=== PATIENT | female | born 1950 | race Hispanic/Latino ===

== ENCOUNTER → 2017-12-26 | Outpatient (CLI) | payer MEDICARE | END | disposition home or self-care (01) | LOC: RAH 08:23 | PROVIDERS: ATTEND Family Medicine | DX: Z12.31 Encounter for screening mammogram for malignant neoplasm of breast (principal) | CPT/HCPCS: 77067 ==

== ENCOUNTER → 2018-12-27 | Outpatient (CLI) | payer MEDICARE | END | disposition home or self-care (01) | LOC: RAH 07:39 | PROVIDERS: ATTEND Family Medicine | DX: Z12.31 Encounter for screening mammogram for malignant neoplasm of breast (principal) | CPT/HCPCS: 77067 ==

== ENCOUNTER → 2019-05-20 | Outpatient (CLI) | payer MEDICARE | END | disposition home or self-care (01) | LOC: RAH 13:36 | PROVIDERS: ATTEND Family Medicine | DX: S09.90XA Unspecified injury of head, initial encounter (principal); G31.89 Other specified degenerative diseases of nervous system; R90.82 White matter disease, unspecified; X58.XXXA Exposure to other specified factors, initial encounter; Y93.89 Activity, other specified; Y92.89 Other specified places as the place of occurrence of the external cause; Y99.8 Other external cause status | CPT/HCPCS: 70450 ==

== ENCOUNTER → 2019-12-29 | Outpatient (CLI) | payer MEDICARE | END | disposition home or self-care (01) | LOC: RAH 08:34 | PROVIDERS: ATTEND Family Medicine | DX: Z12.31 Encounter for screening mammogram for malignant neoplasm of breast (principal) | CPT/HCPCS: 77067 ==

== ENCOUNTER 2020-05-12 16:13 | Inpatient (IN) | payer OTHER, MEDICARE ==
[~2020-05-12] VITALS: Ht 160 cm; Wt 68.9 kg
[2020-05-12 17:13] LABS: BASOPHILS % (AUTO) 0.9 % (0.0-5.0); HEMATOCRIT 48.1 % (36-48); LYMPHOCYTES % (AUTO) 7.2 % (21.0-51.0); MEAN CORPUSCULAR HEMOGLOBIN 28.7 pg (27.0-33.0); MEAN CORPUSCULAR HGB CONC 32.4 g/dL (32.0-36.0); MEAN CORPUSCULAR VOLUME 88.6 fL (79-99); NEUTROPHILS % (AUTO) 79.7 % (40.0-77.0); NUCLEATED RED BLOOD CELLS 0.1 % (0.0-0.19); PLATELET COUNT (AUTO) 432 K/uL (130-400); RED BLOOD CELL COUNT(AUTO) 5.43 MIL/uL (4.00-5.50); RED CELL DISTRIBUTION WIDTH 13.5 % (11.0-15.5); WHITE BLOOD COUNT (AUTO) 20.5 K/uL (4.8-10.8)
[2020-05-12 17:20] LABS: CHLORIDE 100 mmol/L (101-111); CREATININE 1.3 mg/dL (0.5-1.5); GLOMERULAR FILTR. RATE CALC 43 mL/min (>60); GLUCOSE,RANDOM 380 mg/dL (70-105); POTASSIUM 4.3 mmol/L (3.5-5.1); SODIUM SERUM 139 mmol/L (136-145); UREA NITROGEN, BLOOD 16 mg/dL (7-18)
[2020-05-12 17:22] LABS: INR 1.08 (0.85-1.15); PARTIAL THROMBOPLASTIN TIME 29.8 SEC (26.3-35.5); PROTHROMBIN TIME 11.6 SEC (9.6-11.6)
[2020-05-12 17:29] LABS: ABG BASE EXCESS -22.6 mmol/L (-2.0-3.0); ABG HCO3 4.9 mmol/L (21.0-28.0); ABG PCO2 16 mmHg (32-45)
[2020-05-12 17:30] LABS: ALANINE AMINOTRANSFERASE 55 U/L (12-78); ALBUMIN 2.8 g/dL (3.5-5.0); ASPARTATE AMINOTRANSFERASE 45 U/L (10-37); BILIRUBIN,TOTAL 0.7 mg/dL (0.2-1.0); CREATINE KINASE, TOTAL 65 U/L (21-232); MYOGLOBIN 84 ng/mL (10-92); TOTAL PROTEIN, SERUM 8.8 g/dL (6.0-8.3); TROPONIN I < 0.04 ng/mL (0.00-0.06)
[2020-05-12 17:54] LABS: CARBON DIOXIDE 9 mmol/L (21-32)
[2020-05-12] MEDS ORDERED: METHYLPREDNISOLONE SOD SUCC 40MG/ML 1ML ONE (17:57)
[2020-05-12] MEDS ORDERED: CEFTRIAXONE SODIUM 1 GM ONE (17:58)
[2020-05-12] MEDS ORDERED: AZITHROMYCIN 500MG+NS 250ML 250 ML IV ONE (17:58)
[2020-05-12] MEDS ORDERED: INSULIN HUMULIN R 100 UNIT/ML 3ML ONE (18:00)
[2020-05-12] MEDS ORDERED: DEXTROSE 5 %-0.45 % NACL 1,000 ML IV PRN (18:25)
[2020-05-12] MEDS ORDERED: SODIUM CHLORIDE 0.9% 1000ML 1,000 ML IV SCH (18:25)
[2020-05-12] MEDS ORDERED: INSULIN HUMULIN R 100 UNIT/ML 3ML IV SCH (18:30)
[2020-05-12] MEDS ORDERED: POTASSIUM CHLORIDE 10MEQ/100ML 100 ML IV PRN (18:30)
[2020-05-12] MEDS ORDERED: DIPHENHYDRAMINE HCL 25 MG CAPSULE PO PRN (18:45)
[2020-05-12] MEDS ORDERED: NITROGLYCERIN 0.4 MG SL TAB SL PRN (18:45)
[2020-05-12] MEDS ORDERED: ONDANSETRON HCL 4 MG/2 ML VIAL IV PRN (18:45)
[2020-05-12] MEDS ORDERED: SODIUM CHLORIDE 0.9% 100 ML IV ONE (18:47)
[2020-05-12 18:53] LABS: HEMOGLOBIN A1C 9.4 % (4.0-6.0)
[2020-05-12] MEDS ORDERED: ALBUTEROL INHALER 90MCG/INH IH PRN (19:00)
[2020-05-12] MEDS ORDERED: SODIUM BICARB 50MEQ 50ML VIAL IV ONE ×2 (19:00→22:30)
[2020-05-12] MEDS: ALBUTEROL INHALER 90MCG/INH IH SCH ×2 (19:00→23:00)
[2020-05-12 19:25] LABS: APPEARANCE,URINE Clear (CLEAR); BILIRUBIN,URINE Negative (NEGATIVE); COLOR,URINE Yellow (YELLOW); GLUCOSE, URINE (UA) >=1000 mg/dL (NEGATIVE); KETONES,URINE >=160 mg/dL (NEGATIVE); LEUKOCYTE ESTERASE ,URINE Negative (NEGATIVE); NITRATE,URINE Negative (NEGATIVE); OCCULT BLOOD,URINE Small (NEGATIVE); PROTEIN,URINE POS 2+ mg/dL (NEGATIVE)
[2020-05-12] MEDS ORDERED: ERGOCALCIFEROL (VITAMIN D2) 50,000 UNIT CAPSULE PO ONE (19:30)
[2020-05-12 19:41] LABS: BACTERIA,URINE Few /HPF (None Seen); SQUAMOUS EPITHELIAL CELL,UR Few /HPF (0-2)
[2020-05-12 19:42] LABS: MUCUS,URINE Few LPF (None Seen)
[2020-05-12 20:56] LABS: MAGNESIUM 2.3 mg/dL (1.80-2.40); POTASSIUM 3.7 mmol/L (3.5-5.1)
[2020-05-12] MEDS: METHYLPREDNISOLONE SOD SUCC 40MG/ML 1ML IVP SCH (21:00)
[2020-05-12] MEDS: FAMOTIDINE/PF 20 MG/2 ML VIAL IV SCH (21:00)
[2020-05-12] MEDS: ENOXAPARIN SODIUM 80 MG/0.8 ML SQ SCH (21:00)
[2020-05-12 21:37] LABS: ABG BASE EXCESS -21.1 mmol/L (-2.0-3.0); ABG HCO3 6.1 mmol/L (21.0-28.0); ABG OXYGEN SATURATION 90.7 % (95.0-99.0); ABG PCO2 19 mmHg (32-45)
[2020-05-12] MEDS ORDERED: ERGOCALCIFEROL (VITAMIN D2) 50,000 UNIT CAPSULE ONE (22:30)
[2020-05-12] MEDS ORDERED: FAMOTIDINE/PF 20 MG/2 ML VIAL IV ONE (22:30)
[2020-05-12] MEDS ORDERED: SODIUM BICARB 8.4% 50ML SYRING 150 MEQ in DEXTROSE 5%-WATER 1,000 ML IV SCH ×2 (22:30→23:00)
[2020-05-12] MEDS ORDERED: ENOXAPARIN SODIUM 80 MG/0.8 ML SQ ONE (22:31)
[2020-05-12] MEDS ORDERED: SODIUM BICARB 50MEQ 50ML VIAL ONE (22:46)
[2020-05-12] MEDS ORDERED: DEXTROSE 5%-WATER 1,000 ML IV ONE (22:48)
[2020-05-13 00:37] LABS: ABG BASE EXCESS -11.1 mmol/L (-2.0-3.0); ABG HCO3 12.8 mmol/L (21.0-28.0); ABG OXYGEN SATURATION 98.4 % (95.0-99.0); ABG PCO2 25 mmHg (32-45)
[2020-05-13 02:28] LABS: CREATININE 0.7 mg/dL (0.5-1.5); MAGNESIUM 2.2 mg/dL (1.80-2.40)
[2020-05-13 02:37] LABS: POTASSIUM 2.7 mmol/L (3.5-5.1)
[2020-05-13] MEDS ORDERED: METHYLPREDNISOLONE SOD SUCC 40MG/ML 1ML ONE ×3 (02:37→15:18)
[2020-05-13] MEDS ORDERED: POTASSIUM CHLORIDE 20MEQ/100ML 200 ML IV ONE (02:45)
[2020-05-13] MEDS ORDERED: LIDOCAINE HCL-MPF 1% 2ML VIAL ONE ×4 (02:50→17:26)
[2020-05-13] MEDS: ALBUTEROL INHALER 90MCG/INH IH SCH ×6 (03:00→23:00)
[2020-05-13 04:06] LABS: ABG BASE EXCESS -7.7 mmol/L (-2.0-3.0); ABG HCO3 15.6 mmol/L (21.0-28.0); ABG OXYGEN SATURATION 94.1 % (95.0-99.0); ABG PCO2 27 mmHg (32-45)
[2020-05-13 05:50] LABS: HEMATOCRIT 35.5 % (36-48); MEAN CORPUSCULAR HEMOGLOBIN 28.9 pg (27.0-33.0); MEAN CORPUSCULAR HGB CONC 34.6 g/dL (32.0-36.0); MEAN CORPUSCULAR VOLUME 83.5 fL (79-99); PLATELET COUNT (AUTO) 289 K/uL (130-400); RED BLOOD CELL COUNT(AUTO) 4.25 MIL/uL (4.00-5.50); WHITE BLOOD COUNT (AUTO) 10.4 K/uL (4.8-10.8)
[2020-05-13 06:09] LABS: BAND NEUTROPHILS % (MANUAL) 3 % (0-2); LYMPHOCYTES % (MANUAL) 6 % (22-44); MAN.DIFF COMMENT-IMPRESSION MANUAL DIFFERENTIAL; MONOCYTES % (MANUAL) 6 % (2-9); SEGMENTED NEUTROPHILS % 85 % (40-70)
[2020-05-13 06:10] LABS: PLATELET MORPHOLOGY COMMENT ADEQUATE
[2020-05-13 06:33] LABS: ALBUMIN 2.1 g/dL (3.5-5.0); BILIRUBIN,TOTAL 0.5 mg/dL (0.2-1.0); CREATININE 0.8 mg/dL (0.5-1.5); MAGNESIUM 2.2 mg/dL (1.80-2.40); TOTAL PROTEIN, SERUM 6.4 g/dL (6.0-8.3)
[2020-05-13 07:31] LABS: CRP QUANTITATIVE 210.1 mg/L (0.00-9.0)
[2020-05-13] MEDS ORDERED: DEXTROSE 5 %-0.45 % NACL 1,000 ML IV ONE (08:47)
[2020-05-13 08:51] LABS: CREATININE 0.7 mg/dL (0.5-1.5); MAGNESIUM 2.3 mg/dL (1.80-2.40); POTASSIUM 3.3 mmol/L (3.5-5.1)
[2020-05-13] MEDS: CEFTRIAXONE SODIUM 1 GM IV SCH (09:00)
[2020-05-13] MEDS: AZITHROMYCIN 500MG+NS 250ML 250 ML IV SCH (09:00)
[2020-05-13] MEDS: ENOXAPARIN SODIUM 80 MG/0.8 ML SQ SCH ×2 (09:00→21:00)
[2020-05-13] MEDS: ZINC SULFATE 220 CAPSULE PO SCH (09:00)
[2020-05-13] MEDS: METHYLPREDNISOLONE SOD SUCC 40MG/ML 1ML IVP SCH ×3 (09:00→21:00)
[2020-05-13] MEDS: ASCORBIC ACID 500 MG TAB PO SCH (09:00)
[2020-05-13] MEDS ORDERED: ENOXAPARIN SODIUM 40 MG/0.4 ML SYRINGE SQ SCH (09:00)
[2020-05-13] MEDS: FAMOTIDINE/PF 20 MG/2 ML VIAL IV SCH ×2 (09:00→21:00)
[2020-05-13] MEDS ORDERED: ASCORBIC ACID 500 MG TAB ONE (09:11)
[2020-05-13] MEDS ORDERED: POTASSIUM CHLORIDE 10MEQ/100ML 100 ML IV ONE ×3 (09:11→17:26)
[2020-05-13] MEDS ORDERED: ENOXAPARIN SODIUM 40 MG/0.4 ML SYRINGE SQ ONE (09:12)
[2020-05-13] MEDS ORDERED: ZINC SULFATE 220 CAPSULE ONE (09:12)
[2020-05-13 09:20] LABS: ABG BASE EXCESS -3.3 mmol/L (-2.0-3.0); ABG HCO3 19.8 mmol/L (21.0-28.0); ABG OXYGEN SATURATION 96.1 % (95.0-99.0); ABG PCO2 30 mmHg (32-45)
[2020-05-13] MEDS ORDERED: ALBUTEROL INHALER 90MCG/INH IH ONE (09:42)
[2020-05-13] MEDS ORDERED: FAMOTIDINE/PF 20 MG/2 ML VIAL IV ONE ×3 (09:47→22:55)
[2020-05-13] MEDS ORDERED: DEXTROSE 5%-WATER 1,000 ML IV SCH (10:30)
[2020-05-13] MEDS ORDERED: IOHEXOL-350 75 ML VIAL IV ONE (11:29)
[2020-05-13 14:58] LABS: CREATININE 0.8 mg/dL (0.5-1.5); POTASSIUM 3.1 mmol/L (3.5-5.1)
[2020-05-13] MEDS ORDERED: DEXTROSE 5%-WATER 1,000 ML IV ONE (15:19)
[2020-05-13] MEDS ORDERED: INSULIN GLARGINE 100 UNITS/ML 10 ML VIAL SQ SCH (16:00)
[2020-05-13] MEDS ORDERED: INSULIN HUMULIN R 100 UNIT/ML 3ML SQ SCH (16:30)
[2020-05-13 16:54] LABS: ABG BASE EXCESS -4.6 mmol/L (-2.0-3.0); ABG HCO3 18.1 mmol/L (21.0-28.0); ABG OXYGEN SATURATION 97.4 % (95.0-99.0); ABG PCO2 28 mmHg (32-45)
[2020-05-13] MEDS ORDERED: CEFTRIAXONE SODIUM 1 GM ONE (18:22)
[2020-05-13] MEDS ORDERED: AZITHROMYCIN 500MG+NS 250ML 250 ML IV ONE (18:22)
[2020-05-13] MEDS ORDERED: POTASSIUM CHLORIDE 10MEQ/100ML 200 ML IV ONE (22:54)
[2020-05-13] MEDS ORDERED: ENOXAPARIN SODIUM 100 MG/1 ML SQ ONE (22:55)
[2020-05-14] MEDS ORDERED: METHYLPREDNISOLONE SOD SUCC 40MG/ML 1ML ONE ×3 (00:44→22:41)
[2020-05-14] MEDS: ALBUTEROL INHALER 90MCG/INH IH SCH ×2 (03:00→07:00)
[2020-05-14] MEDS ORDERED: INSULIN HUMULIN R 100 UNIT/ML 3ML SQ SCH (04:00)
[2020-05-14] MEDS ORDERED: INSULIN HUMULIN R 100 UNIT/ML 3ML ONE ×2 (04:36→14:40)
[2020-05-14 06:53] LABS: ALBUMIN 2.2 g/dL (3.5-5.0); BILIRUBIN,TOTAL 0.6 mg/dL (0.2-1.0); CREATININE 0.9 mg/dL (0.5-1.5); CRP QUANTITATIVE 99.9 mg/L (0.00-9.0); TOTAL PROTEIN, SERUM 6.4 g/dL (6.0-8.3)
[2020-05-14 07:02] LABS: POTASSIUM 2.9 mmol/L (3.5-5.1)
[2020-05-14] MEDS ORDERED: POTASSIUM CHLORIDE 20 MEQ ERTAB PO SCH (07:45)
[2020-05-14] MEDS ORDERED: INSULIN REGULAR, HUMAN 3ML 100 UNIT in SODIUM CHLORIDE 0.9% 99 ML IV PRN ×2 (08:30)
[2020-05-14] MEDS: AZITHROMYCIN 500MG+NS 250ML 250 ML IV SCH (09:00)
[2020-05-14] MEDS: FAMOTIDINE/PF 20 MG/2 ML VIAL IV SCH ×2 (09:00→21:00)
[2020-05-14] MEDS: METHYLPREDNISOLONE SOD SUCC 40MG/ML 1ML IVP SCH ×3 (09:00→21:00)
[2020-05-14] MEDS: ENOXAPARIN SODIUM 80 MG/0.8 ML SQ SCH ×2 (09:00→21:00)
[2020-05-14] MEDS: CEFTRIAXONE SODIUM 1 GM IV SCH (09:00)
[2020-05-14] MEDS: ZINC SULFATE 220 CAPSULE PO SCH (09:00)
[2020-05-14] MEDS: ASCORBIC ACID 500 MG TAB PO SCH (09:00)
[2020-05-14] MEDS: DEXTROSE 5 %-0.45 % NACL 1,000 ML IV SCH (11:00)
[2020-05-14] MEDS ORDERED: LIDOCAINE HCL-MPF 1% 2ML VIAL IV PRN (11:00)
[2020-05-14] MEDS ORDERED: ASCORBIC ACID 500 MG TAB ONE (11:34)
[2020-05-14] MEDS ORDERED: ZINC SULFATE 220 CAPSULE ONE (11:34)
[2020-05-14] MEDS ORDERED: ENOXAPARIN SODIUM 80 MG/0.8 ML SQ ONE ×2 (11:34→22:41)
[2020-05-14] MEDS ORDERED: FAMOTIDINE/PF 20 MG/2 ML VIAL IV ONE ×2 (11:35→22:42)
[2020-05-14] MEDS ORDERED: AZITHROMYCIN 500MG+NS 250ML 250 ML IV ONE (11:35)
[2020-05-14] MEDS ORDERED: CEFTRIAXONE SODIUM 1 GM ONE (11:35)
[2020-05-14 12:08] LABS: HEMATOCRIT 36.5 % (36-48); MEAN CORPUSCULAR HGB CONC 33.4 g/dL (32.0-36.0); MEAN CORPUSCULAR VOLUME 86.9 fL (79-99); PLATELET COUNT (AUTO) 339 K/uL (130-400); RED CELL DISTRIBUTION WIDTH 13.7 % (11.0-15.5); WHITE BLOOD COUNT (AUTO) 11.5 K/uL (4.8-10.8)
[2020-05-14 13:12] LABS: LYMPHOCYTES % (MANUAL) 5 % (22-44); MAN.DIFF COMMENT-IMPRESSION MANUAL DIFFERENTIAL; MONOCYTES % (MANUAL) 3 % (2-9); PLATELET MORPHOLOGY COMMENT ADEQUATE; SEGMENTED NEUTROPHILS % 92 % (40-70)
[2020-05-14] MEDS ORDERED: SODIUM CHLORIDE 0.9% 100 ML IV ONE (14:41)
[2020-05-14] MEDS ORDERED: DEXTROSE 5 %-0.45 % NACL 1,000 ML IV ONE (15:12)
[2020-05-14 15:25] LABS: CREATININE 0.7 mg/dL (0.5-1.5)
[2020-05-14 15:34] LABS: POTASSIUM 2.9 mmol/L (3.5-5.1)
[2020-05-14] MEDS ORDERED: POTASSIUM CHLORIDE 20 MEQ ERTAB PO ONE (15:43)
[2020-05-14 19:21] LABS: CREATININE 0.7 mg/dL (0.5-1.5)
[2020-05-14 19:24] LABS: POTASSIUM 2.9 mmol/L (3.5-5.1)
[2020-05-14] MEDS ORDERED: POTASSIUM CHLORIDE 20MEQ/100ML 100 ML IV ONE (19:33)
[2020-05-14] MEDS ORDERED: LIDOCAINE HCL-MPF 1% 2ML VIAL ONE (19:34)
[2020-05-15] MEDS: DEXTROSE 5 %-0.45 % NACL 1,000 ML IV SCH ×2 (00:20→13:40)
[2020-05-15 00:57] LABS: CREATININE 0.6 mg/dL (0.5-1.5); POTASSIUM 3.2 mmol/L (3.5-5.1)
[2020-05-15] MEDS ORDERED: POTASSIUM CHLORIDE 20 MEQ ERTAB PO ONE ×4 (02:37→23:17)
[2020-05-15] MEDS ORDERED: DEXTROSE 5 %-0.45 % NACL 1,000 ML IV ONE (06:02)
[2020-05-15 07:12] LABS: ALBUMIN 2.2 g/dL (3.5-5.0); BILIRUBIN,TOTAL 0.5 mg/dL (0.2-1.0); CREATININE 0.5 mg/dL (0.5-1.5); POTASSIUM 3.4 mmol/L (3.5-5.1); TOTAL PROTEIN, SERUM 6.1 g/dL (6.0-8.3)
[2020-05-15] MEDS ORDERED: METHYLPREDNISOLONE SOD SUCC 40MG/ML 1ML ONE ×2 (08:15→20:50)
[2020-05-15] MEDS ORDERED: ENOXAPARIN SODIUM 80 MG/0.8 ML SQ ONE ×2 (08:15→20:50)
[2020-05-15] MEDS ORDERED: ASCORBIC ACID 500 MG TAB ONE (08:15)
[2020-05-15] MEDS ORDERED: ZINC SULFATE 220 CAPSULE ONE (08:16)
[2020-05-15] MEDS ORDERED: CEFTRIAXONE SODIUM 1 GM ONE (08:16)
[2020-05-15] MEDS ORDERED: FAMOTIDINE/PF 20 MG/2 ML VIAL IV ONE ×2 (08:16→20:51)
[2020-05-15] MEDS: FAMOTIDINE/PF 20 MG/2 ML VIAL IV SCH ×2 (09:00→21:00)
[2020-05-15] MEDS: ENOXAPARIN SODIUM 80 MG/0.8 ML SQ SCH ×2 (09:00→21:00)
[2020-05-15] MEDS: METHYLPREDNISOLONE SOD SUCC 40MG/ML 1ML IVP SCH ×3 (09:00→21:00)
[2020-05-15] MEDS: ASCORBIC ACID 500 MG TAB PO SCH (09:00)
[2020-05-15] MEDS: ZINC SULFATE 220 CAPSULE PO SCH (09:00)
[2020-05-15] MEDS: CEFTRIAXONE SODIUM 1 GM IV SCH (09:00)
[2020-05-15] MEDS: AZITHROMYCIN 500MG+NS 250ML 250 ML IV SCH (09:00)
[2020-05-15 11:48] LABS: ABG BASE EXCESS -4.6 mmol/L (-2.0-3.0); ABG HCO3 17.9 mmol/L (21.0-28.0); ABG OXYGEN SATURATION 91.5 % (95.0-99.0); ABG PCO2 27 mmHg (32-45)
[2020-05-15 14:06] LABS: CREATININE 0.7 mg/dL (0.5-1.5); POTASSIUM 3.7 mmol/L (3.5-5.1)
--- NOTE | 2020-05-15 17:13 | NUR ---
INITIAL SW spoke to patient's son, [phone]. Patient lives with spouse at home. She has no home services. DME: glucometer (no insulin), BPM, shower chair. Patient is independent and drives. PCP is Dr. Tanja Dodd. Pharmacy is [facility] located on [address] in [place]. DCP is home. Addendum: 05/15/20 at 1716 by TANJA MATA SS Amended: Links added.
[2020-05-15] MEDS ORDERED: INSULIN HUMULIN R 100 UNIT/ML 3ML ONE (18:37)
[2020-05-15] MEDS: INSULIN GLARGINE 100 UNITS/ML 10 ML VIAL SQ SCH (21:00)
[2020-05-15 22:30] LABS: CREATININE 0.5 mg/dL (0.5-1.5)
[2020-05-16] VITALS (10 sets, daily range): BP systolic 146–165; BP diastolic 57–133
[2020-05-16] MEDS: DEXTROSE 5 %-0.45 % NACL 1,000 ML IV SCH ×2 (03:00→15:34)
--- NOTE | 2020-05-16 06:35 | NUR ---
ADMIT 0535 RECIEVED ED REPORT FROM ROSIO MCCLURE RN 0635 PT ADMIT RM 217 CONNECTED TO BEDSIDE MONITOR 02 5L NC PT ALERT ORIENTED STATED 'FEELING MUCH BETTER' IN NO DISTRESS AT THIS TIME. WILL CONTINUE TO MONITOR
[2020-05-16 06:59] LABS: BASOPHILS % (AUTO) 0.2 % (0.0-5.0); HEMATOCRIT 36.4 % (36-48); LYMPHOCYTES % (AUTO) 9.4 % (21.0-51.0); MEAN CORPUSCULAR HEMOGLOBIN 28.5 pg (27.0-33.0); MEAN CORPUSCULAR HGB CONC 33.8 g/dL (32.0-36.0); MEAN CORPUSCULAR VOLUME 84.3 fL (79-99); MONOCYTES % (AUTO) 3.9 % (3.0-13.0); NEUTROPHILS % (AUTO) 82.6 % (40.0-77.0); PLATELET COUNT (AUTO) 343 K/uL (130-400); RED BLOOD CELL COUNT(AUTO) 4.32 MIL/uL (4.00-5.50); WHITE BLOOD COUNT (AUTO) 8.1 K/uL (4.8-10.8)
[2020-05-16 07:37] LABS: ALBUMIN 2.3 g/dL (3.5-5.0); BILIRUBIN,TOTAL 0.5 mg/dL (0.2-1.0); CREATININE 0.6 mg/dL (0.5-1.5); POTASSIUM 3.8 mmol/L (3.5-5.1); TOTAL PROTEIN, SERUM 6.1 g/dL (6.0-8.3)
[2020-05-16] MEDS: INSULIN GLARGINE 100 UNITS/ML 10 ML VIAL SQ SCH ×2 (07:43→20:48)
[2020-05-16] MEDS: ZINC SULFATE 220 CAPSULE PO SCH (08:58)
[2020-05-16] MEDS: METHYLPREDNISOLONE SOD SUCC 40MG/ML 1ML IVP SCH ×3 (08:58→20:50)
[2020-05-16] MEDS: FAMOTIDINE/PF 20 MG/2 ML VIAL IV SCH ×2 (08:58→20:21)
[2020-05-16] MEDS: CEFTRIAXONE SODIUM 1 GM IV SCH (08:58)
[2020-05-16] MEDS: ASCORBIC ACID 500 MG TAB PO SCH (08:58)
[2020-05-16] MEDS: ENOXAPARIN SODIUM 80 MG/0.8 ML SQ SCH ×2 (08:59→20:20)
[2020-05-16] MEDS: AZITHROMYCIN 500MG+NS 250ML 250 ML IV SCH (08:59)
[2020-05-16] MEDS: INSULIN HUMULIN R 100 UNIT/ML 3ML SQ SCH ×4 (09:12→20:47)
[2020-05-16] MEDS: ALBUTEROL INHALER 90MCG/INH IH SCH ×3 (15:11→20:49)
[2020-05-17] VITALS (7 sets, daily range): BP systolic 122–163; BP diastolic 59–73
[2020-05-17 04:08] LABS: MEAN CORPUSCULAR HEMOGLOBIN 28.5 pg (27.0-33.0); MEAN CORPUSCULAR HGB CONC 34.4 g/dL (32.0-36.0); MEAN CORPUSCULAR VOLUME 82.9 fL (79-99); PLATELET COUNT (AUTO) 300 K/uL (130-400); RED CELL DISTRIBUTION WIDTH 12.7 % (11.0-15.5); WHITE BLOOD COUNT (AUTO) 7.7 K/uL (4.8-10.8)
[2020-05-17 04:31] LABS: ALBUMIN 2.1 g/dL (3.5-5.0); BILIRUBIN,TOTAL 0.4 mg/dL (0.2-1.0); CREATININE 0.5 mg/dL (0.5-1.5); CRP QUANTITATIVE 56.5 mg/L (0.00-9.0); POTASSIUM 3.3 mmol/L (3.5-5.1); TOTAL PROTEIN, SERUM 5.8 g/dL (6.0-8.3)
[2020-05-17] MEDS: ALBUTEROL INHALER 90MCG/INH IH SCH ×5 (07:00→23:00)
[2020-05-17] MEDS: INSULIN HUMULIN R 100 UNIT/ML 3ML SQ SCH ×4 (07:30→20:19)
[2020-05-17] MEDS: FAMOTIDINE/PF 20 MG/2 ML VIAL IV SCH ×2 (07:39→20:18)
[2020-05-17] MEDS: CEFTRIAXONE SODIUM 1 GM IV SCH (07:39)
[2020-05-17] MEDS: AZITHROMYCIN 500MG+NS 250ML 250 ML IV SCH (07:39)
[2020-05-17] MEDS: ZINC SULFATE 220 CAPSULE PO SCH (07:39)
[2020-05-17] MEDS: METHYLPREDNISOLONE SOD SUCC 40MG/ML 1ML IVP SCH ×3 (07:39→20:18)
[2020-05-17] MEDS: ASCORBIC ACID 500 MG TAB PO SCH (07:39)
[2020-05-17] MEDS: ENOXAPARIN SODIUM 80 MG/0.8 ML SQ SCH ×2 (07:40→20:21)
[2020-05-17] MEDS: POTASSIUM CHLORIDE 20 MEQ ERTAB PO PRN (07:40)
[2020-05-17] MEDS: INSULIN GLARGINE 100 UNITS/ML 10 ML VIAL SQ SCH ×2 (07:41→20:20)
[2020-05-17] MEDS: POTASSIUM CHLORIDE 10% ELIXIR 20 MEQ/15 ML UDCUP PO PRN (07:42)
[2020-05-17] MEDS: DEXTROSE 5 %-0.45 % NACL 1,000 ML IV SCH ×2 (07:43→19:00)
[2020-05-17 07:58] LABS: BAND NEUTROPHILS % (MANUAL) 1 % (0-2); LYMPHOCYTES % (MANUAL) 3 % (22-44); MAN.DIFF COMMENT-IMPRESSION MANUAL DIFFERENTIAL; MONOCYTES % (MANUAL) 3 % (2-9); PLATELET MORPHOLOGY COMMENT ADEQUATE; REACTIVE LYMPHOCYTES 2 % (0-0); SEGMENTED NEUTROPHILS % 91 % (40-70)
--- NOTE | 2020-05-17 08:00 | NUR ---
ASSESSMENT ENCOUNTERED PT IN SEMI CARLOS'S POSITION, A&OX3, CALM COOPERATIVE BUT DOES APPEAR TO BE SHORT OF BREATH. O2SATS 85% ON 5LNC, REPOSITIONED TO HIGH CARLOS'S POSITION, O2SATS ONLY IMPROVED TO 86%, PT IS ABLE TO TOLERATE CLEAR LIQUIDS WITH NO THROAT CLEARING OR COUGH. O2 INCREASED TO 6LNC WITH ADDITION OF 100% NRB MASK, O2SATS IMPROVED TO 95%. INFORMED PT THAT SHE WILL REMAIN IN HIGH CARLOS'S POSITION AND NRB/NC WITH AN ATTEMPT TO WEAN OFF BACK TO NC. CALL LIGHT WITHIN REACH.
[2020-05-17] MEDS ORDERED: ASPI-556 PO (17:43)
[2020-05-17] MEDS ORDERED: METO-409 PO (17:43)
[2020-05-17] MEDS ORDERED: OMEP20CA12 PO (17:43)
[2020-05-17] MEDS ORDERED: ATOR20TA65 PO (17:43)
[2020-05-17] MEDS ORDERED: LOSA25TA41 PO (17:43)
[2020-05-17] MEDS ORDERED: RANO500T6 PO (17:43)
[2020-05-17] MEDS ORDERED: METF-444 PO (17:43)
[2020-05-17] MEDS ORDERED: ISOS30TA6 PO (17:43)
[2020-05-17] MEDS ORDERED: LEVO25TA54 PO (17:43)
[2020-05-17] MEDS ORDERED: GLIP10TA9 PO (17:43)
[2020-05-17] MEDS ORDERED: EMPA25TA PO (17:43)
[2020-05-17] MEDS ORDERED: TRAZ-258 PO (17:43)
[2020-05-18 04:01] LABS: HEMATOCRIT 34.6 % (36-48); MEAN CORPUSCULAR HGB CONC 33.8 g/dL (32.0-36.0); MEAN CORPUSCULAR VOLUME 85.6 fL (79-99); PLATELET COUNT (AUTO) 335 K/uL (130-400); RED BLOOD CELL COUNT(AUTO) 4.04 MIL/uL (4.00-5.50); RED CELL DISTRIBUTION WIDTH 12.7 % (11.0-15.5); WHITE BLOOD COUNT (AUTO) 11.4 K/uL (4.8-10.8)
[2020-05-18 04:04] VITALS: BP 145/68
[2020-05-18 04:12] LABS: BILIRUBIN,TOTAL 0.3 mg/dL (0.2-1.0); CREATININE 0.6 mg/dL (0.5-1.5); CRP QUANTITATIVE 31.4 mg/L (0.00-9.0); POTASSIUM 3.5 mmol/L (3.5-5.1); TOTAL PROTEIN, SERUM 5.6 g/dL (6.0-8.3)
[2020-05-18 05:38] LABS: BAND NEUTROPHILS % (MANUAL) 6 % (0-2); LYMPHOCYTES % (MANUAL) 7 % (22-44); MAN.DIFF COMMENT-IMPRESSION MANUAL DIFFERENTIAL; METAMYELOCYTES % 2 % (0-0); MONOCYTES % (MANUAL) 4 % (2-9); MYELOCYTES % 1 % (0-0); SEGMENTED NEUTROPHILS % 80 % (40-70)
[2020-05-18 05:39] LABS: PLATELET MORPHOLOGY COMMENT ADEQUATE
[2020-05-18] MEDS: INSULIN HUMULIN R 100 UNIT/ML 3ML SQ SCH ×4 (05:39→22:47)
[2020-05-18] MEDS: ALBUTEROL INHALER 90MCG/INH IH SCH ×5 (05:40→22:08)
[2020-05-18 07:45] VITALS: BP 135/65
[2020-05-18] MEDS: DEXTROSE 5 %-0.45 % NACL 1,000 ML IV SCH ×2 (08:20→22:01)
[2020-05-18] MEDS: FAMOTIDINE/PF 20 MG/2 ML VIAL IV SCH ×2 (08:27→22:01)
[2020-05-18] MEDS: CEFTRIAXONE SODIUM 1 GM IV SCH (08:28)
[2020-05-18] MEDS: METHYLPREDNISOLONE SOD SUCC 40MG/ML 1ML IVP SCH ×3 (08:28→22:01)
[2020-05-18] MEDS: AZITHROMYCIN 500MG+NS 250ML 250 ML IV SCH (08:28)
[2020-05-18] MEDS: ENOXAPARIN SODIUM 80 MG/0.8 ML SQ SCH ×2 (08:29→22:02)
[2020-05-18] MEDS: INSULIN GLARGINE 100 UNITS/ML 10 ML VIAL SQ SCH ×2 (08:32→22:47)
[2020-05-18] MEDS: ASCORBIC ACID 500 MG TAB PO SCH (08:33)
[2020-05-18] MEDS: ZINC SULFATE 220 CAPSULE PO SCH (08:35)
--- NOTE | 2020-05-18 09:15 | NUR ---
PT WAS TRANSFERRED TO ROOM 228 AFTER GIVING LAMONTE REPORT. PT HAS CONTINUED TO BE SHORT OF BREATH AND REQUIRING BOTH NONREBREATHER MASK AT 100% AND N/C AT 5 L. PT HAS BEEN ON THE PHONE AND TALKING TO FAMILY MEMBERS.
[2020-05-18 11:00] VITALS: BP 146/88
[2020-05-18 15:00] VITALS: BP 150/68
[2020-05-18 20:39] VITALS: BP 140/85
[2020-05-19] VITALS: BP 152/80
[2020-05-19] MEDS: ALBUTEROL INHALER 90MCG/INH IH SCH ×2 (03:00→06:14)
[2020-05-19 04:06] VITALS: BP 161/80
[2020-05-19] MEDS: INSULIN HUMULIN R 100 UNIT/ML 3ML SQ SCH ×4 (06:13→20:28)
[2020-05-19 07:48] LABS: BASOPHILS % (AUTO) 0.4 % (0.0-5.0); HEMATOCRIT 39.7 % (36-48); LYMPHOCYTES % (AUTO) 9.2 % (21.0-51.0); MEAN CORPUSCULAR HGB CONC 33.8 g/dL (32.0-36.0); MEAN CORPUSCULAR VOLUME 85.9 fL (79-99); NEUTROPHILS % (AUTO) 81.2 % (40.0-77.0); PLATELET COUNT (AUTO) 447 K/uL (130-400); RED BLOOD CELL COUNT(AUTO) 4.62 MIL/uL (4.00-5.50); RED CELL DISTRIBUTION WIDTH 12.8 % (11.0-15.5); WHITE BLOOD COUNT (AUTO) 12.3 K/uL (4.8-10.8)
[2020-05-19 08:18] LABS: ALBUMIN 2.2 g/dL (3.5-5.0); BILIRUBIN,TOTAL 0.4 mg/dL (0.2-1.0); CREATININE 0.5 mg/dL (0.5-1.5); TOTAL PROTEIN, SERUM 6.1 g/dL (6.0-8.3)
[2020-05-19 08:32] VITALS: BP 166/86
[2020-05-19] MEDS: ASCORBIC ACID 500 MG TAB PO SCH (09:00)
[2020-05-19] MEDS: POTASSIUM CHLORIDE 20MEQ/100ML 100 ML IV PRN ×2 (09:30→09:34)
[2020-05-19] MEDS: METHYLPREDNISOLONE SOD SUCC 40MG/ML 1ML IVP SCH ×3 (09:32→22:28)
[2020-05-19] MEDS: FAMOTIDINE/PF 20 MG/2 ML VIAL IV SCH ×2 (09:32→22:28)
[2020-05-19] MEDS: ZINC SULFATE 220 CAPSULE PO SCH (09:32)
[2020-05-19] MEDS: POTASSIUM CHLORIDE 10% ELIXIR 20 MEQ/15 ML UDCUP PO PRN ×2 (09:32→10:46)
[2020-05-19] MEDS: ENOXAPARIN SODIUM 80 MG/0.8 ML SQ SCH ×2 (09:34→22:29)
[2020-05-19] MEDS: AZITHROMYCIN 500MG+NS 250ML 250 ML IV SCH (09:34)
[2020-05-19] MEDS: CEFTRIAXONE SODIUM 1 GM IV SCH (09:35)
[2020-05-19] MEDS: INSULIN GLARGINE 100 UNITS/ML 10 ML VIAL SQ SCH ×2 (09:37→23:00)
[2020-05-19] MEDS: DEXTROSE 5 %-0.45 % NACL 1,000 ML IV SCH (11:00)
[2020-05-19 12:33] VITALS: BP 150/72
[2020-05-19 16:36] VITALS: BP 184/98
[2020-05-19] MEDS: POTASSIUM CHLORIDE 20 MEQ ERTAB PO PRN (17:15)
--- NOTE | 2020-05-19 17:23 | NUR ---
OXYGEN WEANING PATIENT ON NRB @ 15L. DECREASED NC TO 3L. PATIENT MAINTAINING OXYGEN SATURATIONS ABOVE 95%.
[2020-05-19] MEDS ORDERED: MAGNESIUM 2GM PREMIX 50ML 50 ML IV PRN (17:45)
[2020-05-19 20:29] VITALS: BP 168/80
[2020-05-20] VITALS: BP 151/89
[2020-05-20] MEDS: DEXTROSE 5 %-0.45 % NACL 1,000 ML IV SCH ×2 (00:26→15:26)
[2020-05-20 04:07] VITALS: BP 148/74
[2020-05-20 06:31] LABS: HEMATOCRIT 38.8 % (36-48); MEAN CORPUSCULAR HGB CONC 33.8 g/dL (32.0-36.0); PLATELET COUNT (AUTO) 438 K/uL (130-400); RED BLOOD CELL COUNT(AUTO) 4.51 MIL/uL (4.00-5.50); RED CELL DISTRIBUTION WIDTH 13.1 % (11.0-15.5); WHITE BLOOD COUNT (AUTO) 11.8 K/uL (4.8-10.8)
--- NOTE | 2020-05-20 06:48 | NUR ---
Pt FSBS reported at 48 this am. Pt tolerated jello and orange juice fsbs recheck 91. No acute distress noted will continue to monitor.
[2020-05-20] MEDS: INSULIN HUMULIN R 100 UNIT/ML 3ML SQ SCH ×4 (06:56→22:24)
[2020-05-20 06:59] LABS: ALBUMIN 2.2 g/dL (3.5-5.0); BILIRUBIN,TOTAL 0.4 mg/dL (0.2-1.0); CREATININE 0.4 mg/dL (0.5-1.5); CRP QUANTITATIVE 43.1 mg/L (0.00-9.0); MAGNESIUM 2.4 mg/dL (1.80-2.40); POTASSIUM 3.2 mmol/L (3.5-5.1); TOTAL PROTEIN, SERUM 5.9 g/dL (6.0-8.3)
--- NOTE | 2020-05-20 07:07 | NUR ---
order caller paged and notified of BS no new orders at this time Addendum: 05/20/20 at 0709 by DOUGLAS CHARLES RN RN Entered in error wrong patient, wind commissioning technician paged r/t low BS awaiting return call at this time.
[2020-05-20 08:06] LABS: LYMPHOCYTES % (MANUAL) 5 % (22-44); MAN.DIFF COMMENT-IMPRESSION MANUAL DIFFERENTIAL; MONOCYTES % (MANUAL) 9 % (2-9); SEGMENTED NEUTROPHILS % 86 % (40-70)
[2020-05-20 08:07] LABS: PLATELET MORPHOLOGY COMMENT SLIGHT INCREASED
[2020-05-20 08:45] VITALS: BP 148/81
[2020-05-20] MEDS: AZITHROMYCIN 500MG+NS 250ML 250 ML IV SCH (09:10)
[2020-05-20] MEDS: ASCORBIC ACID 500 MG TAB PO SCH (09:10)
[2020-05-20] MEDS: CEFTRIAXONE SODIUM 1 GM IV SCH (09:10)
[2020-05-20] MEDS: ZINC SULFATE 220 CAPSULE PO SCH (09:10)
[2020-05-20] MEDS: FAMOTIDINE/PF 20 MG/2 ML VIAL IV SCH ×2 (09:10→22:16)
[2020-05-20] MEDS: ENOXAPARIN SODIUM 80 MG/0.8 ML SQ SCH ×2 (09:11→22:17)
[2020-05-20] MEDS: INSULIN GLARGINE 100 UNITS/ML 10 ML VIAL SQ SCH ×2 (09:13→22:25)
[2020-05-20] MEDS: METHYLPREDNISOLONE SOD SUCC 40MG/ML 1ML IVP SCH ×3 (09:19→22:16)
--- NOTE | 2020-05-20 09:53 | NUR ---
RDSCREEN - LOS X 8 Pt admitted with DKA, positive COVID-19. Pt with Clear Liquid diet order x 8 days. No report of GI distress, PO intake at 75%. NRB @15L/min. Nasal Cannula 3L. Self-proning encouraged. WBC 11.8, K 3.2, Cr 0.3, BG 155, Alb 2.2. Overweight classification. Recommend advance diet to Full Liquid diet order Recommend Glucerna TID Recommend 500mg Vitamin (BID) Recommend 220mg Zinc (QD) RD to continue to monitor. Please notify as additional nutrition concerns arise. Thank you.
--- NOTE | 2020-05-20 11:20 | NUR ---
RESTING IN BED IN LEFT SIDE-LYING POSITION. RESP.'S EVEN AND UNLABORED. O2 SAT-97% PER CONTINUOUS PULSE OXIMETER AT BEDSIDE. CALL LIGHT WITHIN REACH.
[2020-05-20 12:36] VITALS: BP 144/67
[2020-05-20] MEDS: POTASSIUM CHLORIDE 10% ELIXIR 20 MEQ/15 ML UDCUP PO PRN ×2 (12:41→17:00)
[2020-05-20] MEDS: ALBUTEROL INHALER 90MCG/INH IH SCH ×5 (12:54→22:25)
[2020-05-20 16:36] VITALS: BP 130/77
--- NOTE | 2020-05-20 18:10 | NUR ---
RESTING IN BED WITH HOB AT 30 DEGREES, RESP.'S EVEN AND UNLABORED. O2 SAT.-99% PER CONT. PULSE OXIMETER. CALL LIGHT WITHIN REACH.
[2020-05-20 20:41] VITALS: BP 140/69
[2020-05-21] VITALS (7 sets, daily range): BP systolic 143–161; BP diastolic 59–91
[2020-05-21] MEDS: DEXTROSE 5 %-0.45 % NACL 1,000 ML IV SCH (03:45)
[2020-05-21] MEDS: ALBUTEROL INHALER 90MCG/INH IH SCH ×6 (03:45→23:14)
[2020-05-21 05:37] LABS: BASOPHILS % (AUTO) 0.6 % (0.0-5.0); HEMATOCRIT 40.4 % (36-48); LYMPHOCYTES % (AUTO) 5.4 % (21.0-51.0); MEAN CORPUSCULAR HEMOGLOBIN 29.5 pg (27.0-33.0); MEAN CORPUSCULAR HGB CONC 33.9 g/dL (32.0-36.0); MEAN CORPUSCULAR VOLUME 86.9 fL (79-99); MONOCYTES % (AUTO) 4.8 % (3.0-13.0); NEUTROPHILS % (AUTO) 83.1 % (40.0-77.0); PLATELET COUNT (AUTO) 419 K/uL (130-400); RED BLOOD CELL COUNT(AUTO) 4.65 MIL/uL (4.00-5.50); RED CELL DISTRIBUTION WIDTH 13.3 % (11.0-15.5)
[2020-05-21 05:56] LABS: ALBUMIN 2.2 g/dL (3.5-5.0); BILIRUBIN,TOTAL 0.5 mg/dL (0.2-1.0); CREATININE 0.6 mg/dL (0.5-1.5); CRP QUANTITATIVE 54.8 mg/L (0.00-9.0); POTASSIUM 3.9 mmol/L (3.5-5.1); TOTAL PROTEIN, SERUM 6.1 g/dL (6.0-8.3)
[2020-05-21] MEDS: INSULIN HUMULIN R 100 UNIT/ML 3ML SQ SCH ×4 (06:41→20:39)
[2020-05-21] MEDS: AZITHROMYCIN 500MG+NS 250ML 250 ML IV SCH (09:37)
[2020-05-21] MEDS: CEFTRIAXONE SODIUM 1 GM IV SCH (09:38)
[2020-05-21] MEDS: FAMOTIDINE/PF 20 MG/2 ML VIAL IV SCH ×2 (09:38→20:29)
[2020-05-21] MEDS: METHYLPREDNISOLONE SOD SUCC 40MG/ML 1ML IVP SCH ×2 (09:38→13:28)
[2020-05-21] MEDS: ASCORBIC ACID 500 MG TAB PO SCH (09:39)
[2020-05-21] MEDS: INSULIN GLARGINE 100 UNITS/ML 10 ML VIAL SQ SCH ×3 (09:40→20:38)
[2020-05-21] MEDS: ZINC SULFATE 220 CAPSULE PO SCH (09:40)
[2020-05-21] MEDS: ENOXAPARIN SODIUM 80 MG/0.8 ML SQ SCH ×2 (09:41→20:29)
--- NOTE | 2020-05-21 14:31 | NUR ---
RESTING IN RIGHT SIDE-LYING POSITION WITH NRB IN PLACE. RESP.S' EVEN AND UNLABORED. HOB AT 30 DEGREES. O2 SAT.-98% PER CONTINUOUS PULSE OXIMETER AT BEDSIDE. CALL LIGHT WITHIN REACH. BLINDS OPEN.
--- NOTE | 2020-05-21 15:50 | NUR ---
RESTING IN BED IN LEFT SIDE-LYING POSITION, RESP.'S EVEN AND UNLABORED. HOB AT [address] O2 SAT.-94% PER CONTINUOUS PULSE OXIMETER AT BEDSIDE. CALL LIGHT WITHIN REACH. BLINDS OPEN.
[2020-05-21] MEDS ORDERED: LOPERAMIDE HCL 2 MG CAP PO SCH (16:45)
[2020-05-21] MEDS: METRONIDAZOLE 500 MG TABLET PO SCH ×2 (17:17→23:14)
--- NOTE | 2020-05-21 20:51 | NUR ---
CONTINUES ON NON REBREATHER. LOW O2 LEVEL AT 85% WHEN OFF MASK. PT AT 98% AT THE MOMENT. SOB AT REST. COUGH NOTED. PHLEGM, CLEAR THIN. PT HAD DIARRHEA, GIVEN IMMODIUM DURING THE DAY. CURRENTLY NO MORE EPISODES. REDNESS TO BUTTOCKS AREA DUE TO LOOSE BOWELS.
[2020-05-21] MEDS ORDERED: METHYLPREDNISOLONE SOD SUCC 40MG/ML 1ML IVP SCH (21:00)
[2020-05-22 04:08] VITALS: BP 123/67
[2020-05-22 06:21] LABS: BASOPHILS % (AUTO) 0.6 % (0.0-5.0); EOSINOPHILS % (AUTO) 0.2 % (0.0-8.0); HEMATOCRIT 40.5 % (36-48); LYMPHOCYTES % (AUTO) 10.5 % (21.0-51.0); MEAN CORPUSCULAR HEMOGLOBIN 29.4 pg (27.0-33.0); MEAN CORPUSCULAR HGB CONC 33.8 g/dL (32.0-36.0); MEAN CORPUSCULAR VOLUME 86.9 fL (79-99); MONOCYTES % (AUTO) 5.5 % (3.0-13.0); PLATELET COUNT (AUTO) 399 K/uL (130-400); RED BLOOD CELL COUNT(AUTO) 4.66 MIL/uL (4.00-5.50); RED CELL DISTRIBUTION WIDTH 13.4 % (11.0-15.5); WHITE BLOOD COUNT (AUTO) 19.1 K/uL (4.8-10.8)
[2020-05-22 06:36] LABS: CARBON DIOXIDE 33 mmol/L (21-32); CHLORIDE 101 mmol/L (101-111); CREATININE 0.7 mg/dL (0.5-1.5); GLOMERULAR FILTR. RATE CALC 88 mL/min (>60); GLUCOSE,RANDOM 61 mg/dL (70-105); LACTATE DEHYDROGENASE 502 U/L (81-234); PHOSPHORUS 3.9 mg/dL (2.5-4.9); POTASSIUM 3.8 mmol/L (3.5-5.1); SODIUM SERUM 138 mmol/L (136-145); UREA NITROGEN, BLOOD 12 mg/dL (7-18)
[2020-05-22] MEDS: ALBUTEROL INHALER 90MCG/INH IH SCH ×5 (06:43→22:12)
[2020-05-22] MEDS: INSULIN HUMULIN R 100 UNIT/ML 3ML SQ SCH ×4 (06:43→22:11)
[2020-05-22 08:00] VITALS: BP 146/73
[2020-05-22] MEDS: ZINC SULFATE 220 CAPSULE PO SCH (09:45)
[2020-05-22] MEDS: METRONIDAZOLE 500 MG TABLET PO SCH ×2 (09:45→17:16)
[2020-05-22] MEDS: ASCORBIC ACID 500 MG TAB PO SCH (09:45)
[2020-05-22] MEDS: DEXAMETHASONE 4 MG TAB PO SCH (09:45)
[2020-05-22] MEDS: FAMOTIDINE/PF 20 MG/2 ML VIAL IV SCH ×2 (09:45→21:00)
[2020-05-22] MEDS: ENOXAPARIN SODIUM 80 MG/0.8 ML SQ SCH ×2 (09:46→21:00)
[2020-05-22 12:59] VITALS: BP 132/67
[2020-05-22 16:00] VITALS: BP 115/71
--- NOTE | 2020-05-22 18:02 | NUR ---
CM NOTE/LTAC CM spoke to pt regarding d/c planning. Explained MD recommendations for LTAC. Explained LTAC services and level of care. Asked CM to call daughter Perri Mckeon [phone]. CM called daughter and explained above plan. States she is in agreement and okay with [facility] in [place]. CM spoke to pt and notified that daughter is in agreement with plan. Pt gave CM consent for referral to [facility]. CM explained pt is not medically ready for transfer at this time but may be 48-72 hours away from transfer. CM to fax referral when closer to discharge.
[2020-05-22] MEDS ORDERED: BENZONATATE 100 MG CAPSULE PO PRN (18:30)
[2020-05-22 21:05] VITALS: BP 139/83
[2020-05-22] MEDS: INSULIN GLARGINE 100 UNITS/ML 10 ML VIAL SQ SCH (22:12)
[2020-05-23] VITALS (7 sets, daily range): BP systolic 111–131; BP diastolic 50–79
[2020-05-23] MEDS: METRONIDAZOLE 500 MG TABLET PO SCH ×4 (01:17→22:03)
[2020-05-23] MEDS: ALBUTEROL INHALER 90MCG/INH IH SCH ×5 (02:10→18:42)
[2020-05-23 04:15] LABS: BASOPHILS % (AUTO) 0.7 % (0.0-5.0); EOSINOPHILS % (AUTO) 0.7 % (0.0-8.0); HEMATOCRIT 42.5 % (36-48); MEAN CORPUSCULAR HGB CONC 33.2 g/dL (32.0-36.0); MEAN CORPUSCULAR VOLUME 87.4 fL (79-99); MONOCYTES % (AUTO) 3.1 % (3.0-13.0); NEUTROPHILS % (AUTO) 76.4 % (40.0-77.0); PLATELET COUNT (AUTO) 394 K/uL (130-400); RED BLOOD CELL COUNT(AUTO) 4.86 MIL/uL (4.00-5.50); RED CELL DISTRIBUTION WIDTH 13.4 % (11.0-15.5); WHITE BLOOD COUNT (AUTO) 12.3 K/uL (4.8-10.8)
[2020-05-23 04:37] LABS: CREATININE 0.5 mg/dL (0.5-1.5); POTASSIUM 3.9 mmol/L (3.5-5.1)
[2020-05-23] MEDS: INSULIN HUMULIN R 100 UNIT/ML 3ML SQ SCH ×4 (05:32→20:44)
[2020-05-23] MEDS: ASCORBIC ACID 500 MG TAB PO SCH (09:08)
[2020-05-23] MEDS: ZINC SULFATE 220 CAPSULE PO SCH (09:08)
[2020-05-23] MEDS: DEXAMETHASONE 4 MG TAB PO SCH (09:08)
[2020-05-23] MEDS: FAMOTIDINE/PF 20 MG/2 ML VIAL IV SCH ×2 (09:09→20:43)
[2020-05-23] MEDS: ENOXAPARIN SODIUM 80 MG/0.8 ML SQ SCH ×2 (09:11→20:43)
--- NOTE | 2020-05-23 09:26 | NUR ---
Doreen MOYA NP, IN ROOM SPEAKING WITH PT.
--- NOTE | 2020-05-23 10:30 | NUR ---
RESTING IN BED WITH EYES CLOSED, RESP.'S EVEN AND UNLABORED. O2 SAT.-90% PER CONTINUOUS PULSE OXIMETER AT BEDSIDE. CALL LIGHT WITHIN REACH. ROOM BLINDS OPEN.
--- NOTE | 2020-05-23 12:30 | NUR ---
ASSISTED TO SIT UP AND SET UP FOR LUNCH. CALL LIGHT WITHIN REACH, VERBALIZED ABILITY TO USE. PT. ALTERNATES BITES OF FOOD AND NRB MASK IN PLACE.
--- NOTE | 2020-05-23 14:23 | NUR ---
RESTING IN BED IN RIGHT SIDE-LYING POSITION WITH EYES CLOSED, RESP.'S EVEN AND UNLABORED. O2 SAT PER CONT. PULSE OX. - 98%. CALL LIGHT WITHIN REACH.
[2020-05-23] MEDS: INSULIN GLARGINE 100 UNITS/ML 10 ML VIAL SQ SCH (20:44)
--- NOTE | 2020-05-23 21:45 | NUR ---
ASSESSMENT ENCOUNTERED PT LAYING ON LEFT SIDE, A&OX3, CALM COOPERATIVE AND DOES NOT APPEAR TO BE IN ANY DISTRESS NOR ANY NEURO DEFICITS PRESENT. PT DENIES PAIN, SOB, NAUSEA BUT DOES C/O DYSPNEA ON EXERTION. PT ON 100% NRB, PT IS ABLE TO TOLERATE FOODS, FLUIDS AND MEDICATION WITH NO THROAT CLEARING OR COUGH. CALL LIGHT WITHIN REACH.
[2020-05-23] MEDS ORDERED: PHARMACY COMMUNICATION MISC SCH (22:15)
[2020-05-24] MEDS: ALBUTEROL INHALER 90MCG/INH IH SCH ×5 (03:00→23:00)
[2020-05-24 03:29] VITALS: BP 122/67
--- NOTE | 2020-05-24 04:52 | NUR ---
BOWEL MOVEMENT X1 INCONTINENT BM, SOFT, BROWN. PROVIDED JOSE RAMON CARE. PT PRESENTS WITH RASH ON BUTTOCKS, BARRIER CREAM APPLIED.
--- NOTE | 2020-05-24 04:53 | NUR ---
O2 DESATURATIONS PLACED THE PT ON A NONREBREATHER @ 15 LPM, NC @ 5 LPM. SATS INCREASED FROM 84-86% TO 90-91%. PT CALM, EVEN, NON-LABORED RESPIRATIONS. CALL LIGHT WITHIN REACH. NO DISTRESS NOTED.
[2020-05-24 04:58] LABS: BASOPHILS % (AUTO) 0.5 % (0.0-5.0); EOSINOPHILS % (AUTO) 0.4 % (0.0-8.0); HEMATOCRIT 43.6 % (36-48); LYMPHOCYTES % (AUTO) 9.7 % (21.0-51.0); MEAN CORPUSCULAR HEMOGLOBIN 28.9 pg (27.0-33.0); MEAN CORPUSCULAR HGB CONC 33.3 g/dL (32.0-36.0); MONOCYTES % (AUTO) 2.6 % (3.0-13.0); PLATELET COUNT (AUTO) 407 K/uL (130-400); RED BLOOD CELL COUNT(AUTO) 5.01 MIL/uL (4.00-5.50); RED CELL DISTRIBUTION WIDTH 13.4 % (11.0-15.5); WHITE BLOOD COUNT (AUTO) 17.1 K/uL (4.8-10.8)
[2020-05-24 04:59] LABS: CREATININE 0.7 mg/dL (0.5-1.5); CRP QUANTITATIVE 142.4 mg/L (0.00-9.0); POTASSIUM 4.2 mmol/L (3.5-5.1)
[2020-05-24] MEDS: INSULIN HUMULIN R 100 UNIT/ML 3ML SQ SCH ×4 (06:06→21:41)
[2020-05-24 09:00] VITALS: BP 128/76
[2020-05-24] MEDS: FAMOTIDINE/PF 20 MG/2 ML VIAL IV SCH ×2 (09:00→21:35)
[2020-05-24] MEDS: ZINC SULFATE 220 CAPSULE PO SCH (09:00)
[2020-05-24] MEDS: DEXAMETHASONE 4 MG TAB PO SCH (09:00)
[2020-05-24] MEDS: ENOXAPARIN SODIUM 80 MG/0.8 ML SQ SCH ×2 (09:00→21:37)
[2020-05-24] MEDS: ASCORBIC ACID 500 MG TAB PO SCH (09:00)
[2020-05-24 11:53] VITALS: BP 129/76
[2020-05-24] MEDS: METRONIDAZOLE 500 MG TABLET PO SCH ×2 (12:28→21:37)
[2020-05-24 15:53] VITALS: BP 130/73
--- NOTE | 2020-05-24 17:19 | NUR ---
DC PLAN SPOKE TO ABDULKADIR SAID SHE IS SUBMITTED. PATIENT HAVE TO GO TO [place]. FAMILY AWARE AND OKAY WITH IT PER ABDULKADIR. ABDULKADIR CALLED SAID PATIENT IS APPROVED AUTH WAS GIVEN AT 1645. LET HER KNOW DR. Leos HAD ALREADY MADE ROUNDS. PLAN TO DC IN AM. WILL CALL ME BACK WITH MOT INFO. Addendum: 05/24/20 at 1723 by BARRON RUCKER RN CM Amended: Links added.
[2020-05-24 20:44] VITALS: BP 128/63
[2020-05-24] MEDS: INSULIN GLARGINE 100 UNITS/ML 10 ML VIAL SQ SCH (21:40)
[2020-05-24] MEDS: METHYLPREDNISOLONE SOD SUCC 125MG/2ML VIAL IVP SCH (21:45)
[2020-05-24 23:33] VITALS: BP 122/82
[2020-05-25] MEDS: ALBUTEROL INHALER 90MCG/INH IH SCH ×4 (03:48→14:35)
[2020-05-25 04:31] VITALS: BP 119/60
[2020-05-25] MEDS: METHYLPREDNISOLONE SOD SUCC 125MG/2ML VIAL IVP SCH ×2 (05:32→12:43)
[2020-05-25] MEDS: METRONIDAZOLE 500 MG TABLET PO SCH ×2 (05:32→12:42)
[2020-05-25 05:41] LABS: BASOPHILS % (AUTO) 0.4 % (0.0-5.0); EOSINOPHILS % (AUTO) 0.6 % (0.0-8.0); HEMATOCRIT 40.2 % (36-48); LYMPHOCYTES % (AUTO) 12.8 % (21.0-51.0); MEAN CORPUSCULAR HGB CONC 33.6 g/dL (32.0-36.0); MEAN CORPUSCULAR VOLUME 86.5 fL (79-99); MONOCYTES % (AUTO) 3.3 % (3.0-13.0); NEUTROPHILS % (AUTO) 78.4 % (40.0-77.0); PLATELET COUNT (AUTO) 353 K/uL (130-400); RED BLOOD CELL COUNT(AUTO) 4.65 MIL/uL (4.00-5.50); RED CELL DISTRIBUTION WIDTH 13.5 % (11.0-15.5); WHITE BLOOD COUNT (AUTO) 15.6 K/uL (4.8-10.8)
[2020-05-25 06:02] LABS: CREATININE 0.6 mg/dL (0.5-1.5); POTASSIUM 3.6 mmol/L (3.5-5.1)
[2020-05-25] MEDS: INSULIN HUMULIN R 100 UNIT/ML 3ML SQ SCH ×3 (06:15→16:13)
--- NOTE | 2020-05-25 08:15 | NUR ---
AM ASSESSMENT PT SITTING IN BED, WATCHING TV. A/O X 3. SOB ON EXERTION. NO DISTRESS NOTED. O2 NRBC/NC @ 15L/5L. CONT PULSE OX @ BEDSIDE. PT OCCASIONALLY REMOVES NRBM. TELE: SR. DENIES N/V AND/OR DIARRHEA. TINEO CATHETER PATENT & DRAINING. BEDREST. INSTRUCTED TO CALL FOR ASSISTANCE. CALL LILLIAN W/IN REACH.
[2020-05-25 08:48] VITALS: BP 146/74
[2020-05-25] MEDS: ASCORBIC ACID 500 MG TAB PO SCH (09:05)
[2020-05-25] MEDS: ZINC SULFATE 220 CAPSULE PO SCH (09:05)
[2020-05-25] MEDS: ENOXAPARIN SODIUM 80 MG/0.8 ML SQ SCH (09:06)
[2020-05-25] MEDS: FAMOTIDINE/PF 20 MG/2 ML VIAL IV SCH (09:06)
[2020-05-25 12:50] VITALS: BP 129/67
--- NOTE | 2020-05-25 15:29 | NUR ---
DC PLAN ABDULKADIR CALLED SAID PATIENT NEEDS TO TRANSFER EARLY. SPOKE TO NOMAN SAID HE HAD ALREADY DONE MED REC AND MOT IN CHART. TO PLACE ORDER FOR DC. ORDER PLACED. EMS SENT PATIENT ON NRB COVID 19 POSITIVE. NO BEDS IN [place] BED FOUND IN [place]. Addendum: 05/25/20 at 1532 by BARRON RUCKER RN CM Amended: Links added.
--- NOTE | 2020-05-25 15:38 | NUR ---
DISCHARGE ATTEMPTED TO FAX MED REC TO [facility]. FAX BUSY. CM NOTIFIED.
--- NOTE | 2020-05-25 15:45 | NUR ---
DISCHARGE ATTEMPTED TO CALL REPORT TO MARIAN SUMNER. MARIAN'S CN TO CALL BACK.
[2020-05-25 16:19] VITALS: BP 145/88
--- NOTE | 2020-05-25 16:30 | NUR ---
DISCHARGE CALL RETURNED TO MARIAN MALHOTRA. REPORT GIVEN @ THIS TIME.
--- NOTE | 2020-05-25 17:10 | NUR ---
DISCHARGE PT REQUESTED TO HAVE PERSONAL BELONGINGS THROWN AWAY. PT STATES PERSONAL BELONGINGS ARE CONTAMINATED.
--- NOTE | 2020-05-25 17:20 | NUR ---
DISCHARGE EMS HERE TO TRANSFER PT TO [facility].
== END 2020-05-25 17:30 | DRG 871 ==
LOC: EDH 16:13 → EDHIP 18:18 → 2CH 05-16 06:01 → 2CV 05-17 12:26 → 2DH 05-18 09:34
PROVIDERS: ADMIT Internal Medicine; ATTEND Internal Medicine
DX: A41.89 Other specified sepsis (principal); R65.21 Severe sepsis with septic shock; U07.1 COVID-19; J96.01 Acute respiratory failure with hypoxia; E11.10 Type 2 diabetes mellitus with ketoacidosis without coma; I26.99 Other pulmonary embolism without acute cor pulmonale; J12.89 Other viral pneumonia; E87.2 Acidosis; N17.9 Acute kidney failure, unspecified; E87.0 Hyperosmolality and hypernatremia; E87.6 Hypokalemia; I10 Essential (primary) hypertension; E03.9 Hypothyroidism, unspecified; E78.5 Hyperlipidemia, unspecified; E66.3 Overweight; E86.9 Volume depletion, unspecified; Z68.26 Body mass index [BMI] 26.0-26.9, adult; Z79.4 Long term (current) use of insulin; Z86.711 Personal history of pulmonary embolism; Z88.8 Allergy status to other drugs, medicaments and biological substances; Z90.49 Acquired absence of other specified parts of digestive tract; Z83.3 Family history of diabetes mellitus
CPT/HCPCS: 36415; 36600; 71045; 71275; 80048; 80053; 81001; 82330; 82550; 82728; 82803; 82948; 83036; 83605; 83615; 83690; 83735; 83874; 83880; 83930; 84100; 84132; 84145; 84443; 84484; 85025; 85378; 85610; 85730; 86140; 86900; 86901; 87040; 87077; 87088; 87186; 87486; 87581; 87633; 87798; 87804; 93005; 97039; 99291; G0378; J0456; J0696; J1650; J1815; J2920; J2930; J3475; J3480; J3490; J7042; J7070; J8540; Q0163; Q9967; U0003